=== PATIENT | male | born 2005 | race Caucasian/White ===

== ENCOUNTER 2025-11-03 11:46 | Emergency (ER) | payer OTHER ==
[~2025-11-03] VITALS: Ht 172.7 cm; Wt 77.3 kg
[2025-11-03 12:59] VITALS: BP 133/69; TEMP 97.5; O2SAT 100
== END 2025-11-03 13:02 | disposition home or self-care (01) ==
LOC: M ED 11:46
DX: S90.111A Contusion of right great toe without damage to nail, initial encounter (principal); S90.121A Contusion of right lesser toe(s) without damage to nail, initial encounter; W20.8XXA Other cause of strike by thrown, projected or falling object, initial encounter; Y92.89 Other specified places as the place of occurrence of the external cause; Y93.89 Activity, other specified; Y99.1 Military activity